=== PATIENT | female | born 1965 | race Caucasian/White ===

== ENCOUNTER 2017-04-19 12:07 | Observation (INO) | payer OTHER ==
[~2017-04-19] VITALS: Ht 162.6 cm; Wt 85.1 kg
[~2017-04-19 12:07] MED LIST: ASPIRIN81 M1 PO; ATENOLOL; ATENOLOL100 MG PO; Antivert PO; LEXAPRO20 MG PO; LIPITOR40 MG PO; METHADONE10 MG PO; MULTIVITAMIN1 EAC2 PO; PRILOSEC40 MG PO; Zestril,Prinivil PO
[2017-04-19 14:00] LABS: VENOUS PCO2 65 mm Hg (41-51)
[2017-04-19 14:04] LABS: HEMOGLOBIN 13.5 G/DL (11.9-15.5); MCH 29.5 PG (29.0-34.0); MCHC 33.8 G/DL (30.0-36.0); MCV 87.5 FL (83-99); PLATELET COUNT 171 K/uL (156-360); RBC DIS.WIDTH-CV 14.2 % (11.8-14.6); RBC DIS.WIDTH-SD 45.4 % (39-53); RED BLOOD COUNT 4.57 M/uL (3.80-5.20); WHITE BLOOD COUNT 6.7 K/uL (4.1-10.2)
[2017-04-19 14:05] LABS: CARBON DIOXIDE (BICARBONATE) > 40.0 MEQ/L (20-31)
[2017-04-19 14:16] LABS: ALBUMIN 3.9 g/dL (3.2-4.8); CHLORIDE 96 mEq/L (99-109); POTASSIUM 3.3 mEq/L (3.7-5.4); SODIUM 138 mEq/L (136-147)
[2017-04-19 14:18] LABS: GLUCOSE 72 mg/dL (70-99)
[2017-04-19 14:19] LABS: TOTAL PROTEIN 6.6 g/dL (6.4-8.3)
[2017-04-19 14:20] LABS: TOTAL BILIRUBIN 0.5 mg/dL (0.0-1.0)
[2017-04-19 14:22] LABS: ALKALINE PHOSPHATASE 66 IU/L (3-129); CREATININE 0.8 mg/dL (0.6-1.3); GFR ESTIMATE (CALCULATED) > 59 mL/min/
[2017-04-19 14:23] LABS: UREA NITROGEN (BUN) 9 mg/dL (9-23)
[2017-04-19 14:24] LABS: AST (GOT) 24 IU/L (2-34)
[2017-04-19 14:25] LABS: ALT (GPT) 12 IU/L (3-49)
[2017-04-19 14:28] LABS: TROP-I INTERPRETATION NEGATIVE; TROPONIN-I < 0.01 ng/mL (0.0-0.30)
[2017-04-19] MEDS ORDERED: PRILOSEC20 MG PO (14:34)
[2017-04-19] MEDS ORDERED: ZESTORETIC 20-1 EAC2 PO (14:34)
[2017-04-19] MEDS ORDERED: NICODERM CQ1 EAC1 TD (14:35)
[2017-04-19] MEDS ORDERED: LO-DOSE ASPIRIN81 M1 PO (14:36)
[2017-04-19] MEDS ORDERED: ADVIL200 MG PO (14:36)
[2017-04-19 15:33] LABS: THYROTROPIN (TSH) 1.1 MIU/L (0.4-5.5)
[2017-04-19 17:31] VITALS: BP 149/79
[2017-04-19 18:49] LABS: APPEARANCE CLEAR ((CLEAR)); BILIRUBIN NEGATIVE; BLOOD SMALL; COLOR STRAW ((YELLOW)); GLUCOSE (STRIP) NEGATIVE; KETONES NEGATIVE; LEUKOCYTES NEGATIVE; NITRITE NEGATIVE; PROTEIN (STRIP) NEGATIVE; SPECIFIC GRAVITY 1.004 (1.000-1.030); UROBILINOGEN 0.2 MG/DL (0.2-1.0)
[2017-04-19 18:51] LABS: BACTERIA RARE /HPF; EPITHELIAL CELLS RARE /HPF; MUCUS NONE SEEN /LPF; RED BLOOD CELLS 0-5 /HPF (0-5); WHITE BLOOD CELLS NONE SEEN /HPF (0-5)
[2017-04-19 18:59] LABS: AMPHETAMINE NEGATIVE (500 ng/mL); BARBITURATES NEGATIVE (200 ng/mL); BENZODIAZEPINES NEGATIVE (150 ng/mL); BUPRENORPHINE NEGATIVE (10 ng/mL); COCAINE NEGATIVE (150 ng/mL); METHADONE PRESUMPTIVE POSITIVE (200 ng/mL); METHAMPHETAMINE NEGATIVE (500 ng/mL); OPIATES (MORPHINE) NEGATIVE (100 ng/mL); OXYCODONE NEGATIVE (100 ng/mL); PHENCYCLIDINE NEGATIVE (25 ng/mL); PROPOXYPHENE NEGATIVE (300 ng/mL); THC CANNABINOIDS PRESUMPTIVE POSITIVE (50 ng/mL); TRICYCLIC ANTIDEPRESSANTS NEGATIVE (300 ng/mL)
[2017-04-19 19:15] VITALS: BP 177/84
[2017-04-20] VITALS (8 sets, daily range): BP systolic 131–194; BP diastolic 61–97
[2017-04-20 06:20] LABS: CHLORIDE 98 MEQ/L (99-109); CREATININE 0.7 MG/DL (0.6-1.3); GFR ESTIMATE (CALCULATED) > 59 mL/min/; POTASSIUM 3.6 MEQ/L (3.7-5.4); SODIUM 140 MEQ/L (136-147); UREA NITROGEN (BUN) 11 mg/dL (9-23)
[2017-04-20 06:21] LABS: GLUCOSE 137 mg/dL (70-99)
[2017-04-20] MEDS ORDERED: ZESTORETIC 20-1 EAC1 PO (14:51)
[2017-04-20] MEDS ORDERED: NORVASC5 MG PO (14:51)
== END 2017-04-20 16:01 | disposition home or self-care (01) ==
LOC: EME 12:07 → EDOF 15:51 → 5WEST 15:51 → ENRESERV 15:53 → 5WEST 17:13
PROVIDERS: Emergency Medicine; Internal Medicine
DX: I10 Essential (primary) hypertension (principal); F41.9 Anxiety disorder, unspecified; I25.10 Atherosclerotic heart disease of native coronary artery without angina pectoris; Z95.5 Presence of coronary angioplasty implant and graft; E78.5 Hyperlipidemia, unspecified; R06.02 Shortness of breath; R06.89 Other abnormalities of breathing; F17.210 Nicotine dependence, cigarettes, uncomplicated; F11.11 Opioid abuse, in remission
CPT/HCPCS: 71046; 80048; 80053; 81003; 82803; 83880; 84443; 84484; 84999; 85027; 93005; 94640; 94640 76; 99202; 99281; 99285; G0378; J0360; J1650; J7512